=== PATIENT | female | born 1995 | race Caucasian/White ===

== ENCOUNTER 2023-03-03 17:09 | Emergency (ER) | payer OTHER ==
[~2023-03-03] VITALS: Ht 157.5 cm; Wt 56.2 kg
[2023-03-03 17:27] VITALS: O2SAT 98
[2023-03-03] MEDS ORDERED: NAPR-1129 MT (20:22)
[2023-03-03 20:48] VITALS: BP 135/70; PULSE 70; RESP 16; TEMP 97.7
== END 2023-03-03 20:51 | disposition home or self-care (01) ==
LOC: ER 17:09
DX: S13.4XXA Sprain of ligaments of cervical spine, initial encounter (principal); V49.9XXA Car occupant (driver) (passenger) injured in unspecified traffic accident, initial encounter; Y93.89 Activity, other specified; Y92.89 Other specified places as the place of occurrence of the external cause; Y99.8 Other external cause status
CPT/HCPCS: 99282

== ENCOUNTER 2024-12-18 18:33 | Emergency (ER) | payer SELFPAY ==
[~2024-12-18] VITALS: Ht 157.5 cm; Wt 66.0 kg
[~2024-12-18 18:33] MED LIST: NAPR-1129 MT
[2024-12-18 18:49] VITALS: O2SAT 98
[2024-12-18] MEDS: BACITRACIN ZINC OINT UDPKT TOP ONE (20:45)
[2024-12-18] MEDS: LIDOCAINE HCL 1% 20ML VIAL INFIL ONE (20:45)
[2024-12-18] MEDS: TETANUS, DIPHTHERIA, PERTUSSIS VAC/PF 0.5ML (>10YR OLD) IM ONE (21:39)
[2024-12-18] MEDS: IBUPROFEN 600MG TABLET PO ONE (21:48)
[2024-12-18] MEDS ORDERED: AMOX1TAB16 MT (22:50)
[2024-12-18] MEDS ORDERED: BO1 TP (22:50)
[2024-12-18] MEDS ORDERED: IBUP-1455 MT (22:50)
[2024-12-18 23:13] VITALS: BP 117/81; PULSE 89; RESP 16; TEMP 36.6; O2SAT 98
== END 2024-12-18 23:15 | disposition home or self-care (01) ==
LOC: ER 18:33
DX: S51.811A Laceration without foreign body of right forearm, initial encounter (principal); W54.0XXA Bitten by dog, initial encounter; Y93.89 Activity, other specified; Y92.89 Other specified places as the place of occurrence of the external cause; Y99.8 Other external cause status
CPT/HCPCS: 81025; 90715; 12002; 90471; 99283; J2003; Z7610

== ENCOUNTER 2024-12-20 13:11 | Emergency (ER) | payer SELFPAY ==
[~2024-12-20] VITALS: Ht 157.5 cm; Wt 66.0 kg
[~2024-12-20 13:11] MED LIST changes: +AMOX1TAB16 MT; +BO1 TP; +IBUP-1455 MT
[2024-12-20 13:14] VITALS: O2SAT 99
[2024-12-20 15:33] VITALS: BP 128/74; PULSE 82; RESP 16; TEMP 36.9; O2SAT 99
== END 2024-12-20 15:34 | disposition home or self-care (01) ==
LOC: ER 13:11
DX: S51.811D Laceration without foreign body of right forearm, subsequent encounter (principal); Z79.899 Other long term (current) drug therapy; X58.XXXD Exposure to other specified factors, subsequent encounter
CPT/HCPCS: 99282